=== PATIENT | female | born 1950 | race American Indian/Alaskan Native ===

== ENCOUNTER 2020-10-01 09:10 | Outpatient (CLI) | payer MEDICARE ==
--- NOTE | 2020-10-01 10:13 | Mammography Report ---
DIGITAL SCREENING MAMMOGRAM WITH CAD, 10/01/2020 CLINICAL INFORMATION / INDICATION: Routine screening mammography. History of left breast lumpectomy a nd radiation therapy for breast carcinoma. TECHNIQUE: Digital bilateral 2D mammography was obtained in the craniocaudal and mediolateral obliqu e projections. This examination was interpreted with the benefit of Computer-Aided Detection analysis . COMPARISON: 09/29/2018, 10/01/2019 FINDINGS: Breast Density: There are scattered areas of fibroglandular density. No dominant mass, suspicious calcifications, or architectural distortion in either breast. Left lumpectomy and radiation change is again noted without significant interval change. Overall, the mammogram is stable in appearance. IMPRESSION: No mammographic evidence of malignancy. Follow up recommendation: Routine yearly BI-RADS Category 2: Benign. A "normal" or negative report should not discourage follow up or biopsy of a clinically significant f inding. A written summary of these findings will be mailed to the patient. The patient will be entered into a mammography reporting system which will generate a reminder letter for the patient's next appointmen t at the appropriate interval. [employer] recommends yearly mammograms starting at age 40 and continuing as l leonel as a woman is in good health. Breast MRI is recommended for women with an approximate 20-25% or greater lifetime risk of breast cancer, including women with a strong family history of breast or ova giuseppe cancer or who have been treated for Hodgkin's disease. Signer Name: Eliza Jackson MD Signed: 10/01/2020 10:08 AM Workstation Name: [id number]
== END 2020-10-01 09:11 | disposition home or self-care (01) ==
LOC: SPVWC 09:10
PROVIDERS: ATTEND Surgery
DX: Z12.31 Encounter for screening mammogram for malignant neoplasm of breast (principal); N64.89 Other specified disorders of breast
CPT/HCPCS: 77067